=== PATIENT | male | born 1960 | race Caucasian/White ===

== ENCOUNTER 2017-01-06 10:07 | Inpatient (IN) | payer MEDICARE ==
[~2017-01-06] VITALS: Ht 193 cm; Wt 108.5 kg
[2017-01-06] MEDS ORDERED: ATOR20TA86 PO (10:34)
[2017-01-06] MEDS ORDERED: CLOP75 PO (10:34)
[2017-01-06] MEDS ORDERED: FLUO-191 PO (10:34)
[2017-01-06] MEDS ORDERED: ADV100 IH (10:34)
[2017-01-06] MEDS ORDERED: LEVE500T53 PO (10:34)
[2017-01-06] MEDS ORDERED: OLAN10TA3 PO (10:34)
[2017-01-06] MEDS ORDERED: GABA-529 PO (10:34)
[2017-01-06 10:43] LABS: BASOPHILS % (AUTO) 0.1 % (0.0-2.0); EOSINOPHILS % (AUTO) 0.9 % (1.0-6.0); HEMATOCRIT 46.2 % (41-53); HEMOGLOBIN 15.7 g/dL (13.5-17.5); LYMPHOCYTES # (AUTO) 1.7 K/uL (1.0-4.8); LYMPHOCYTES % (AUTO) 13.8 % (22.0-44.0); MEAN CORPUSCULAR HEMOGLOBIN 31.4 pg (26.0-34.0); MEAN CORPUSCULAR VOLUME 92 fL (80-100); MONOCYTES # (AUTO) 0.6 K/uL (0.1-1.0); NEUTROPHILS % (AUTO) 80.2 % (40.0-70.0); PLATELET COUNT (AUTO) 216 K/uL (150-450); RED BLOOD CELL COUNT(AUTO) 5.01 MIL/uL (4.50-5.90); WHITE BLOOD COUNT (AUTO) 12.4 K/uL (4.5-11.0)
[2017-01-06 11:03] LABS: ANION GAP 9 mmol/L (8-16); CALCIUM, TOTAL 9.1 mg/dL (8.8-10.5); CARBON DIOXIDE 28 mmol/L (22-29); CHLORIDE 104 mmol/L (98-107); CREATININE 0.76 mg/dL (0.60-1.30); GLOMERULAR FILTR. RATE CALC > 60 mL/min (>60); POTASSIUM 3.9 mmol/L (3.5-5.1); SODIUM SERUM 141 mmol/L (136-145); UREA NITROGEN, BLOOD 14 mg/dL (7-18)
[2017-01-06 11:07] LABS: ALANINE AMINOTRANSFERASE 35 U/L (12-78); ALBUMIN 4.2 g/dL (3.4-5.0); ASPARTATE AMINOTRANSFERASE 20 U/L (15-37); BILIRUBIN,TOTAL 0.7 mg/dL (0.1-1.0); TOTAL PROTEIN, SERUM 8.1 g/dL (6.4-8.2)
[2017-01-06] MEDS ORDERED: ALBUTEROL SULFATE 2.5 MG/0.5 ML NEB SOLUTION NEB ONE (11:15)
[2017-01-06] MEDS ORDERED: IPRATROPIUM BROMIDE 0.5 MG/2.5 ML NEB SOLUTION NEB ONE (11:15)
[2017-01-06] MEDS ORDERED: ZOLPIDEM TARTRATE 10 MG TABLET PO PRN (13:30)
[2017-01-06] MEDS ORDERED: LORazepam 2 MG TABLET PO PRN (13:30)
[2017-01-06] MEDS ORDERED: HALOPERIDOL 5 MG TABLET PO PRN (13:30)
[2017-01-06 16:10] VITALS: BP 122/75
[2017-01-06] MEDS: GABAPENTIN 100 MG CAPSULE PO SCH (17:00)
[2017-01-06] MEDS ORDERED: INFLUENZA VIRUS VACCINE QVS 2017-18 (3YR+)/PF 60 MCG/0.5 ML SYRINGE IM ONE (19:45)
[2017-01-06] MEDS: OLANZapine 10 MG TABLET PO SCH (20:32)
[2017-01-07 06:34] VITALS: BP 112/63
[2017-01-07 08:26] VITALS: BP 115/63
[2017-01-07] MEDS ORDERED: FLUoxetine HCL 20 MG CAPSULE PO SCH (09:00)
[2017-01-07 09:21] LABS: BASOPHILS # (AUTO) 0.03 K/uL (0.00-0.20); BASOPHILS % (AUTO) 0.2 % (0.0-2.0); EOSINOPHILS # (AUTO) 0.14 K/uL (0.00-0.70); EOSINOPHILS % (AUTO) 1.18 % (1.0-6.0); HEMATOCRIT 46.1 % (41-53); HEMOGLOBIN 15.5 g/dL (13.5-17.5); LYMPHOCYTES # (AUTO) 1.5 K/uL (1.0-4.8); LYMPHOCYTES % (AUTO) 12.6 % (22.0-44.0); MEAN CORPUSCULAR HEMOGLOBIN 31.1 pg (26.0-34.0); MEAN CORPUSCULAR HGB CONC 33.6 G/dL (31.0-37.0); MEAN CORPUSCULAR VOLUME 93 fL (80-100); MONOCYTES # (AUTO) 0.7 K/uL (0.1-1.0); MONOCYTES % (AUTO) 5.9 % (2.0-9.0); NEUTROPHILS # (AUTO) 9.6 K/uL (1.8-7.7); PLATELET COUNT (AUTO) 187 K/uL (150-450); RED BLOOD CELL COUNT(AUTO) 4.98 MIL/uL (4.50-5.90); RED CELL DISTRIBUTION WIDTH 14.1 % (11.5-14.5)
[2017-01-07] MEDS: LevETIRAcetam 500 MG TABLET PO SCH ×2 (09:27→16:40)
[2017-01-07] MEDS: GABAPENTIN 100 MG CAPSULE PO SCH ×3 (09:27→16:40)
[2017-01-07] MEDS: ATORVASTATIN CALCIUM 20 MG TABLET PO SCH (09:27)
[2017-01-07] MEDS: NICOTINE 21 MG/24 HOUR PATCH TD SCH (09:28)
[2017-01-07] MEDS: FLUTICASONE/VILANTEROL 100-25 MCG/INH INHALER [14] IH SCH (12:35)
[2017-01-07] MEDS: CLOPIDOGREL BISULFATE 75 MG TABLET PO SCH (12:36)
[2017-01-07 16:14] VITALS: BP 112/67
[2017-01-07] MEDS: OLANZapine 10 MG TABLET PO SCH (21:07)
[2017-01-08 06:06] VITALS: BP 109/74
[2017-01-08] MEDS: FLUoxetine HCL 20 MG CAPSULE PO SCH (08:21)
[2017-01-08] MEDS: ATORVASTATIN CALCIUM 20 MG TABLET PO SCH (08:21)
[2017-01-08] MEDS: GABAPENTIN 300 MG CAPSULE PO SCH ×3 (08:21→17:04)
[2017-01-08] MEDS: CLOPIDOGREL BISULFATE 75 MG TABLET PO SCH (08:21)
[2017-01-08] MEDS: LevETIRAcetam 500 MG TABLET PO SCH ×2 (08:21→17:04)
[2017-01-08] MEDS: NICOTINE 21 MG/24 HOUR PATCH TD SCH (08:22)
[2017-01-08] MEDS: FLUTICASONE/VILANTEROL 100-25 MCG/INH INHALER [14] IH SCH (08:24)
[2017-01-08 09:05] VITALS: BP 125/77
[2017-01-08 16:09] VITALS: BP 106/60
[2017-01-08] MEDS: OLANZapine 10 MG TABLET PO SCH (21:08)
[2017-01-09 06:12] VITALS: BP 131/78
[2017-01-09] MEDS: GABAPENTIN 300 MG CAPSULE PO SCH ×3 (08:13→16:45)
[2017-01-09] MEDS: CLOPIDOGREL BISULFATE 75 MG TABLET PO SCH (08:13)
[2017-01-09] MEDS: ATORVASTATIN CALCIUM 20 MG TABLET PO SCH (08:13)
[2017-01-09] MEDS: LevETIRAcetam 500 MG TABLET PO SCH ×2 (08:13→16:45)
[2017-01-09] MEDS: FLUTICASONE/VILANTEROL 100-25 MCG/INH INHALER [14] IH SCH (08:13)
[2017-01-09] MEDS: FLUoxetine HCL 20 MG CAPSULE PO SCH (08:13)
[2017-01-09] MEDS: NICOTINE 21 MG/24 HOUR PATCH TD SCH (08:14)
[2017-01-09 08:24] VITALS: BP 110/76
[2017-01-09 17:13] VITALS: BP 107/74
[2017-01-09] MEDS: OLANZapine 10 MG TABLET PO SCH (20:36)
[2017-01-10 01:16] VITALS: BP 112/66
[2017-01-10 08:29] VITALS: BP 117/77
[2017-01-10] MEDS: GABAPENTIN 300 MG CAPSULE PO SCH ×3 (09:16→17:11)
[2017-01-10] MEDS: LevETIRAcetam 500 MG TABLET PO SCH ×2 (09:16→17:11)
[2017-01-10] MEDS: ATORVASTATIN CALCIUM 20 MG TABLET PO SCH (09:16)
[2017-01-10] MEDS: CLOPIDOGREL BISULFATE 75 MG TABLET PO SCH (09:16)
[2017-01-10] MEDS: NICOTINE 21 MG/24 HOUR PATCH TD SCH (09:17)
[2017-01-10] MEDS: FLUoxetine HCL 20 MG CAPSULE PO SCH (09:17)
[2017-01-10] MEDS: FLUTICASONE/VILANTEROL 100-25 MCG/INH INHALER [14] IH SCH (09:18)
[2017-01-10 16:27] VITALS: BP 107/66
[2017-01-10] MEDS: OLANZapine 10 MG TABLET PO SCH (20:33)
[2017-01-11 06:29] VITALS: BP 138/90
[2017-01-11] MEDS ORDERED: GuaiFENesin/D-METHORPHAN [SUGAR-FREE] 200-20MG/10 ML SYRUP UDCUP PO PRN (07:45)
[2017-01-11 08:21] LABS: BASOPHILS % (AUTO) 0.2 % (0.0-2.0); EOSINOPHILS % (AUTO) 1.9 % (1.0-6.0); HEMATOCRIT 45.7 % (41-53); HEMOGLOBIN 15.7 g/dL (13.5-17.5); LYMPHOCYTES # (AUTO) 1.5 K/uL (1.0-4.8); LYMPHOCYTES % (AUTO) 17.6 % (22.0-44.0); MEAN CORPUSCULAR HEMOGLOBIN 31.7 pg (26.0-34.0); MEAN CORPUSCULAR HGB CONC 34.4 G/dL (31.0-37.0); MEAN CORPUSCULAR VOLUME 92 fL (80-100); MONOCYTES # (AUTO) 0.4 K/uL (0.1-1.0); MONOCYTES % (AUTO) 5.3 % (2.0-9.0); NEUTROPHILS # (AUTO) 6.2 K/uL (1.8-7.7); PLATELET COUNT (AUTO) 193 K/uL (150-450); RED BLOOD CELL COUNT(AUTO) 4.96 MIL/uL (4.50-5.90); RED CELL DISTRIBUTION WIDTH 14.3 % (11.5-14.5); WHITE BLOOD COUNT (AUTO) 8.3 K/uL (4.5-11.0)
[2017-01-11 08:44] VITALS: BP 116/74
[2017-01-11] MEDS: FLUoxetine HCL 20 MG CAPSULE PO SCH (08:46)
[2017-01-11] MEDS: GABAPENTIN 300 MG CAPSULE PO SCH ×3 (08:46→16:37)
[2017-01-11] MEDS: CLOPIDOGREL BISULFATE 75 MG TABLET PO SCH (08:46)
[2017-01-11] MEDS: ATORVASTATIN CALCIUM 20 MG TABLET PO SCH (08:46)
[2017-01-11] MEDS: LevETIRAcetam 500 MG TABLET PO SCH ×2 (08:46→16:37)
[2017-01-11] MEDS: NICOTINE 21 MG/24 HOUR PATCH TD SCH (08:47)
[2017-01-11] MEDS: FLUTICASONE/VILANTEROL 100-25 MCG/INH INHALER [14] IH SCH (08:52)
[2017-01-11 09:48] LABS: CHOL/HDL RATIO 4.1 (4.2-7.3); CREATINE KINASE, TOTAL 30 U/L (39-308); THYROID STIMULATING HORMONE 1.02 uIU/mL (0.36-3.74)
[2017-01-11] MEDS: CEPHALEXIN MONOHYDRATE 500 MG CAPSULE PO SCH ×3 (13:17→20:41)
[2017-01-11 16:13] VITALS: BP 123/72
[2017-01-11] MEDS: OLANZapine 10 MG TABLET PO SCH (20:41)
[2017-01-12 06:23] VITALS: BP 118/63
[2017-01-12 08:28] VITALS: BP 126/73
[2017-01-12] MEDS: ATORVASTATIN CALCIUM 20 MG TABLET PO SCH (08:52)
[2017-01-12] MEDS: LevETIRAcetam 500 MG TABLET PO SCH (08:53)
[2017-01-12] MEDS: FLUoxetine HCL 20 MG CAPSULE PO SCH (08:53)
[2017-01-12] MEDS: NICOTINE 21 MG/24 HOUR PATCH TD SCH (08:53)
[2017-01-12] MEDS: CEPHALEXIN MONOHYDRATE 500 MG CAPSULE PO SCH ×2 (08:53→12:50)
[2017-01-12] MEDS: GABAPENTIN 300 MG CAPSULE PO SCH ×2 (08:53→12:50)
[2017-01-12] MEDS: CLOPIDOGREL BISULFATE 75 MG TABLET PO SCH (08:53)
[2017-01-12] MEDS: FLUTICASONE/VILANTEROL 100-25 MCG/INH INHALER [14] IH SCH (09:02)
[2017-01-12 09:06] LABS: HEPATITIS Bs ANTIGEN SCREEN P Negative (Negative); HEPATITIS C AB SCREEN <0.1 s/co ratio (0.0-0.9)
[2017-01-12] MEDS ORDERED: CEPH500 PO (10:21)
[2017-01-12] MEDS ORDERED: FLUT1AER IH (10:22)
== END 2017-01-12 14:50 | DRG 885 ==
LOC: EEVIPCON 10:07 → EMS 10:10 → B2X 13:55 → EMS 14:34 → B2X 01-10 12:07
PROVIDERS: ADMIT Psychiatry & Neurology Psychiatry; ATTEND Psychiatry & Neurology Psychiatry
PROC: 3E0234Z Introduction of Serum, Toxoid and Vaccine into Muscle, Percutaneous Approach (ICD-10-PCS; principal; 2017-01-06)
DX: F25.1 Schizoaffective disorder, depressive type (principal); G62.9 Polyneuropathy, unspecified; R45.851 Suicidal ideations; I69.351 Hemiplegia and hemiparesis following cerebral infarction affecting right dominant side; J44.0 Chronic obstructive pulmonary disease with (acute) lower respiratory infection; L03.221 Cellulitis of neck; G40.909 Epilepsy, unspecified, not intractable, without status epilepticus; E55.9 Vitamin D deficiency, unspecified; E78.5 Hyperlipidemia, unspecified; F12.90 Cannabis use, unspecified, uncomplicated; I69.320 Aphasia following cerebral infarction; F10.10 Alcohol abuse, uncomplicated; F60.3 Borderline personality disorder; F17.200 Nicotine dependence, unspecified, uncomplicated; J20.8 Acute bronchitis due to other specified organisms; Z23 Encounter for immunization; F41.9 Anxiety disorder, unspecified; Z59.0 Homelessness; Z79.899 Other long term (current) drug therapy
CPT/HCPCS: 80074; 82306; 82607; 82746; 83036; 83735; 84439; 84443; 90471; 94640; G0480; G0482